=== PATIENT | male | born 2000 | race Caucasian/White ===

== ENCOUNTER 2021-11-14 22:39 | Emergency (ER) | payer OTHER, SELFPAY ==
--- NOTE | ~2021-11-14 | XR_ITS ---
EXAMINATION: XR CHEST CLINICAL INFORMATION: Covid positive. Cough. COMPARISON: 09/05/2018 TECHNIQUE: Frontal view of the chest was obtained. FINDINGS: The lungs are well expanded. There is no focal consolidation, edema, or effusion. No pneumothorax. The cardiomediastinal silhouette is within normal limits. No acute osseous abnormality. XR/XR chest 1V IMPRESSION: Clear lungs.
[2021-11-14 22:56] VITALS: BP 105/71; PULSE 118; RESP 16; TEMP 37.8; O2SAT 99; BMI 27.1
[2021-11-14] MEDS: Ibuprofen 600 MG TABLET PO (22:56)
[2021-11-14 23:14] LABS: COVID-19 Test Positive (Negative)
[2021-11-14 23:19] LABS: IDNOW Serial# 16C4AD1C; Influenza A Negative (Negative); Influenza B2 Negative (Negative)
--- NOTE | 2021-11-15 01:02 | ED.FEVER ---
HPI - Fever General Chief Complaint: Fever Stated Complaint: fever,sob,cough Time Seen by Provider: 11/15/21 01:01 Source: patient Mode of arrival: ambulatory Limitations: no limitations History of Present Illness HPI Narrative: 21-year-old male came in for evaluation of fever, body ache, coughing. Patient received COVID vaccination x2 (done remember what kind), there is exposure to a sick contact at home with similar symptoms. Patient had a nonproductive cough started 4 months ago. Related Data Allergies Allergy/AdvReac Type Severity Reaction Status Date / Time No Known Allergies Allergy Unverified 12/23/19 19:41 [No Known Allergies*] Review of Systems Review of Systems: All other systems are reviewed and are negative Constitutional: Reports as per HPI and Reports no additional constitutional complaints Eyes: Reports as per HPI and Reports no additional eye complaints Reports system reviewed and no additional complaints, except as documented Cardiovascular: Reports as per HPI and Reports no additional cardiovascular complaints Respiratory: Reports as per HPI and Reports no additional respiratory complaints Gastrointestinal: Reports as per HPI and Reports no additional gastrointestinal complaints Genitourinary: Reports no additional female genitourinary complaints Musculoskeletal: Reports no additional musculoskeletal complaints Skin/Breast: Reports system reviewed and no additional complaints, except as docu Psychiatric: Reports no additional psychiatric complaints Endocrine: Reports no additional endocrine complaints Hematologic/Lymphatic: Reports no additional hematologic/lymphatic complaints Allergic/Immunologic: Reports no additional allergic/immunologic complaints Reports system reviewed and no additional complaints, except as documented and Reports Abnormal speech present [facility] Social History Social History Advance Directives: No Advance Directives Information Provided: Yes Physical Exam Vital Signs: Vital Signs: Last Vital Signs Temp 100.1 F 11/14/21 22:56 Pulse 118 H 11/14/21 22:56 Resp 16 11/14/21 22:56 BP 105/71 11/14/21 22:56 Pulse Ox 99 11/14/21 22:56 O2 Del Method 11/14/21 22:56 BMI result Body Mass Index 27.1 Vital signs have been reviewed as appeared to be correct. Blood pressure normal. Heart rate elevated. Respiration rate normal. Temperature elevated. Oxygen saturation normal. Appearance: Alert. Oriented X3. No acute distress. Head: Normal external exam. Normocephalic. Atraumatic. No Garces signs noted. No raccoon eyes noted Eyes: PERRLA. EOMI. Conjunctiva and sclera normal. Eyelids normal. ENT: TM's Normal. Pharynx normal. Uvula midline. Moist mucous membranes. No trismus noted. No drooling noted. No muffled voice noted. Neck: Normal inspection. Neck supple. FROM. No adenopathy. Thyroid Normal. No meningeal signs. No neck mass noted. CVS: Normal heart rate and rhythm. Heart sound normal. No murmurs noted. Pulses normal throughout. Respiratory: No respiratory distress. Painless inspiration. Breath sounds normal. No wheezes/rales/rhonchi noted. Chest nontender. No accessory muscle usage noted or decreased air movement noted. Abdomen: Soft and nontender. Bowel sounds normal in all 4 quadrants. No distention noted. No organomegaly noted. No visible injury noted. Back: No CVA tenderness. Full range of motion noted. Skin: Skin warm and dry. Normal skin color. Normal skin turgor. No rashes/lesions/lacerations noted. Extremities: No lower extremity edema. Extremities exhibit normal range of motion. Extremities nontender. Neuro: Oriented X 3. Cranial nerve exam: II-XII are grossly intact No motor deficit. No sensory deficit. Reflexes normal. Course Course Course Narrative: 21-year-old male with COVID infection, no SOB, chest x-ray is unremarkable, O2 saturation is 99% on room air. Will discharge, self quarantine, frequent handwashing, use face mask at all times, keep social distancing. MDM - Fever Lab Data Attestation: I reviewed the patient's lab results. Labs: Lab Results 11/14/21 11/14/21 Range/Units 22:56 22:56 COVID-19 ([facility]) Positive A (Negative) COVID-19 Clin Com See Note Influenza Type A (CH[facility]INE) Negative (Negative) Influenza Type B (CHRISTINE) Negative (Negative) Influenza A & B Note See Note Imaging Data Chest x-ray: Attestation: I personally reviewed and interpreted this imaging study as follows: Radiologist's impression: No acute intrathoracic pathology. Discharge Plan Discharge Clinical Impression: COVID-19 virus infection Patient Disposition: Home, Self-Care Instructions: COVID-19 (Coronavirus Disease 2019) (ED) Additional Instructions: Frequent handwashing,, use face mask at all times, keep social distancing, self quarantine for the next 10 days. Return to the emergency department for shortness of breath. Stand Alone Forms: Work/School Release
[2021-11-15] MEDS: Acetaminophen 325 MG TABLET 650 MG PO (01:25)
== END 2021-11-15 01:32 | disposition home or self-care (01) ==
PROVIDERS: Emergency Provider Emergency Medicine
DX: U07.1 COVID-19 (principal); R50.9 Fever, unspecified
CPT/HCPCS: 71045; 87502; 87635; 99283

== ENCOUNTER 2022-04-03 12:21 | Emergency (ER) | payer OTHER, SELFPAY ==
[2022-04-03 12:35] VITALS: BP 127/71; PULSE 114; RESP 16; TEMP 37.7; O2SAT 97; BMI 28.3
--- NOTE | 2022-04-03 12:37 | ED.URI ---
HPI - URI/Sore Throat General Chief Complaint: Upper Respiratory Symptoms Stated Complaint: Cough Chest Discomfort Time Seen by Provider: 04/03/22 12:37 Source: patient Mode of arrival: ambulatory Limitations: no limitations History of Present Illness HPI Narrative: 22 yo male with no medical problems presents to the ER c/o flu like symptoms since 03/31 after known exposure to the Flu on 03/29. He has body aches, headaches, cough. No difficulty breathing or chest pain. He presents with his sister who has similar complaints. MD elicited complaint: fever, cough and nasal congestion Onset (ago): day(s) Consistency: progressively worsening Severity: moderate Description of mucous: clear and watery Able to tolerate fluids by mouth: Yes Exacerbating factors: nothing Relieving factors: nothing Context: sick contacts Associated symptoms: chills, headache, nasal congestion, sore throat and cough Treatments prior to arrival: none Related Data Allergies Allergy/AdvReac Type Severity Reaction Status Date / Time No Known Allergies Allergy Verified 04/03/22 12:38 [No Known Allergies*] Review of Systems Review of Systems: Constitutional: No Fever, + Chills ENT/Mouth: + sore throat, No Rhinorrhea Cardiovascular: No Chest Pain, No SOB Respiratory: + Cough, No Sputum, No Wheezing, No dyspnea Gastrointestinal: No Nausea, No Vomiting, No Diarrhea, No abdominal Pain Musculoskeletal: No joint pain, +Myalgias Skin: No Skin Lesions, No rash Neuro: No Weakness, No Dizziness, + Headache Heme/Lymph: No Lymphadenopathy PMFSH Social History Social History Advance Directives: No Advance Directives Information Provided: Yes Physical Exam Vital Signs: Vital Signs: Last Vital Signs Temp 99.9 F 04/03/22 12:35 Pulse 112 H 04/03/22 13:42 Resp 16 04/03/22 13:42 BP 138/80 04/03/22 13:42 Pulse Ox 98 04/03/22 13:42 O2 Del Method 04/03/22 13:42 BMI result Body Mass Index 28.3 Appearance: Alert. Oriented X3. No acute distress. Eyes: Pupils equal, round and reactive to light. ENT: Pharynx normal. Neck: Normal inspection. Neck supple. CVS: tachycardiac, 110, regular rhythm. Pulses normal. Respiratory: No respiratory distress. Breath sounds normal. Skin: Skin warm and dry. Normal skin color. Normal skin turgor. No rashes. Extremities: normal inspection x4, normal rom Neuro: Oriented X 3. grossly normal, nonfocal Course Course Course Narrative: 22 yo male presenting wtih flu like symptoms after known exposure to the flu. needs flu test for work. slightly tachycardic with low grade fever Reevaluation(s) Reevaluation #1: Patient tested negative for flu. He is here with his sister who tested positive for flu. He most likely has a false-negative which we discussed. He will be provided a work note. Symptomatic management reviewed. stable for d/c home. Medications Administered Discontinued Medications Generic Name Dose Route Start Last Admin Trade Name Freq PRN Reason Stop Dose Admin Acetaminophen 975 mg 04/03/22 12:42 04/03/22 13:06 Acetaminophen 325 Mg Tablet PO 04/03/22 12:43 975 mg ONCE ONE Administration Medical Decision Making Lab Data Labs: Lab Results 04/03/22 Range/Units 12:45 Influenza Type A (CHRISTINE) Negative (Negative) Influenza Type B (CHRISTINE) Negative (Negative) Influenza A & B Note See Note Discharge Plan Discharge Clinical Impression: Viral infection Patient Disposition: Home, Self-Care Instructions: Viral Syndrome (ED) Additional Instructions: You tested negative for Influenza, however since your family member tested positive this is most likely a FALSE NEGATIVE. Rest. Drink plenty of fluids. Do not go out in public while you are not feeling well. Take over the counter cold/flu medications as needed for your symptoms. Take Tylenol and/or Motrin as needed for fevers and body aches. Follow up with your doctor this week. If you shortness of breath worsens, if you develop difficulty breathing or any other concerning symptom come back to the ER for further evaluation. If you develop new or worsening symptoms call 911 or come back to the ER for further evaluation. Stand Alone Forms: Work/School Release Interventions: ED Discharge Assessment Last Done: 04/03/22 13:54 Discharge Date/Time: 04/03/22 13:58
[2022-04-03] MEDS: Acetaminophen 325 MG TABLET 975 MG PO (13:06)
[2022-04-03 13:36] LABS: Influenza A Negative (Negative); Influenza B2 Negative (Negative)
[2022-04-03 13:42] VITALS: BP 138/80; PULSE 112; RESP 16; O2SAT 98
== END 2022-04-03 13:58 | disposition home or self-care (01) ==
PROVIDERS: Physician Assistant; Emergency Provider Student in an Organized Health Care Education/Training Program
DX: B34.9 Viral infection, unspecified (principal); R05.9 Cough, unspecified; R51.9 Headache, unspecified; Z79.899 Other long term (current) drug therapy
CPT/HCPCS: 87502; 99283; 99284

== ENCOUNTER 2024-06-17 18:06 | Emergency (ER) | payer OTHER, SELFPAY ==
--- NOTE | ~2024-06-17 | US_ITS ---
CLINICAL HISTORY: RUQ pain US abdomen limited Comparison: None Findings: There is no intrahepatic bile duct dilatation. The common duct is 3 mm in diameter. The gallbladder is nondilated and no stones or sludge are visualized. No wall thickening or pericholecystic fluid. The interviewing clerk does report pain in the area of the gallbladder. The main portal vein is antegrade. IMPRESSION: Unremarkable sonographic appearance of the gallbladder. This document has been electronically signed by: Joi Welsh MD on 06/17/2024 20:01:17
[2024-06-17 19:02] VITALS: BP 126/70; PULSE 107; RESP 18; TEMP 37.2; O2SAT 100; BMI 25.1
--- NOTE | 2024-06-17 19:08 | ED.NAVMDI ---
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 He reports this morning he began with nausea, vomiting with multiple bouts of nonbloody emesis, having episodes of watery diarrhea without hematochezia or melena. Endorsing pain to the upper mid abdomen which he states occurred after he began vomiting. Endorses having subjective fever. 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 His brother has additionally been experiencing nausea vomiting and diarrhea today but his spouse has been more frequent. He also admits that family members in the household have tested positive for group a strep. He denies associated sore throat, cough, URI symptoms. No associated chest pain Related Data Previous Rx's ?Medication ?Instructions ?Recorded ondansetron 4 mg disintegrating 4 mg PO Q8H PRN nausea and 06/18/24 tablet vomiting #7 tabs Allergies Allergy/AdvReac Type Severity Reaction Status Date / Time No Known Allergies Allergy Verified 06/17/24 19:29 [No Known Allergies*] Review of Systems Review of Systems: Yes all other systems are reviewed and are negative PMFSH Past Medical History Attestation statement: The following information was validated with the patient. Source: old records reviewed Social History Social History Smoked in Last 30 Days: No Use of substances other than those prescribed or required for medical reasons: No Advance Directives: No Advance Directives Information Provided: Yes Do you have a plan to hurt others: No Plan Physical Exam Vital Signs: Vital Signs: Last Vital Signs Temp 99 F 06/18/24 01:56 Pulse 105 H 06/18/24 01:56 Resp 18 06/18/24 01:56 BP 119/69 06/18/24 01:56 Pulse Ox 99 06/18/24 01:56 O2 Del Method Room Air 06/18/24 01:56 BMI result Body Mass Index 25.1 Appearance: Alert.?Oriented to person, place and time. No acute distress.?Normal affect. Eyes: Pupils equal, round and reactive to light.? ENT: Pharynx normal.?? Neck: Normal inspection.? Neck supple.?? CVS: Heart sounds normal. tachycardia.? Pulses normal.?? Respiratory: No respiratory distress.? Lung sounds clear to auscultation bilaterally?? Abdomen: Soft with duffuse upper ABD tenderness upon palpation. Normoactive bowel sounds. No pulsatile mass.?? Skin: Skin warm and dry.? Normal skin color.? Extremities: No lower extremity edema.? Neuro: Moves all extremities spontaneously. Sensation intact bilaterally. Ambulates with normal steady gait. Course Course Course Narrative: This is an RME: Additional HPI, ROS, PE not included below will be deferred to primary provider. RME assessment and note performed by: Beth Josue PA-C This is a [id number], with no known medical hx, who presents to the ER with complaints of nausea, vomiting and abdominal pain since this morning. +subjective fevers. diarrhea. No cough, SOB. +sick contacts. Tenderness palpation along the epigastrium and right upper quadrant. Plan: Labs, UA, ultrasound, further ER eval needed. Reevaluation(s) Reevaluation #1: No lactic acidosis, low suspicion for acute intra-abdominal pathology/infarct. Symptomatic improvement after Zofran Toradol and IV fluids. Suspect a gastroenteritis, conservative treatment, stable for discharge home, outpatient follow-up with PCP in discussed strict return precautions. All questions answered. Medications Administered Discontinued Medications Generic Name Dose Route Start Last Admin Trade Name Freq PRN Reason Stop Dose Admin Acetaminophen 975 mg 06/17/24 23:19 06/17/24 23:23 Acetaminophen 325 Mg Tablet PO 06/17/24 23:20 975 mg ONCE ONE Administration Sodium Chloride 1,000 mls @ 999 mls/hr 06/17/24 23:45 06/18/24 00:37 Ns IV 06/18/24 00:45 999 mls/hr .Q1H1M IVELISSE Administration Ketorolac Tromethamine 15 mg 06/18/24 00:04 06/18/24 00:41 Ketorolac Tromethamine 15 Mg/Ml Vial IVPUSH 06/18/24 00:05 15 mg ONCE ONE Administration Ondansetron HCl 4 mg 06/17/24 23:57 06/18/24 00:41 Ondansetron Hcl 4 Mg/2 Ml Vial IVPUSH 06/17/24 23:58 4 mg ONCE ONE Administration Medical Decision Making Medical Decision Making [facility] Narrative: Patient is a 24-year-old male who presents emergency department for evaluation of N/V/D with associated abdominal pain as per HPI. On examination he does have diffuse tenderness throughout the upper abdomen to the touch, received acetaminophen. 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 Given associated ill contacts brother ill with similar gastrointestinal symptoms reviewed potential a viral gastroenteritis, he has been exposed to multiple members of family positive for group a strep his testing today however is negative, no evidence of acute pharyngitis on evaluation. CBC is without leukocytosis, anemia, or thrombocytopenia. No electrolyte derangement. No AME. LFTs overall unremarkable at that minimally elevated ALT at 94. Viral serologies are negative. Group a strep testing is negative. Admission/Observation Consideration of admission/observation: Escalation of care including admission/observation considered Lab Data [facility] Lab Attestation statement: I reviewed the patient's lab results. (See narrative above) 06/17/24 20:14 06/17/24 20:14 Labs: Lab Results 06/17/24 06/17/24 06/18/24 Range/Units 20:14 23:12 00:51 WBC 10.8 (4.8-10.8) X10*3/uL RBC 5.37 (4.60-5.80) X10*6/uL Hgb 15.7 (14.0-18.0) g/dl Hct 45.6 (42.0-52.0) % MCV 84.9 (80.0-98.0) fL MCH 29.2 (27.0-33.0) pg MCHC 34.4 (31.0-36.0) g/dl RDW 13.3 (11.0-16.0) % Plt Count 230 (160-400) X10*3/uL MPV 10.8 (9.4-12.4) fL Immature Gran % (Auto) 0.5 H (0.0-0.4) % Neut % (Auto) 86.9 H (45-73) % Lymph % (Auto) 6.3 L (20-40) % [place] % (Auto) 5.2 (2-11) % Eos % (Auto) 0.9 (0-4) % Baso % (Auto) 0.2 (0-2) % Lymph # (Auto) 0.7 L (1.2-4.9) X10*3/uL [place] # (Auto) 0.6 (0.1-1.2) X10*3/uL Eos # (Auto) 0.1 (0.0-0.4) X10*3/uL Baso # (Auto) 0.0 (0.0-0.2) X10*3/uL Abs Immat Gran (auto) 0.05 H (0.00-0.03) X10*3/uL Absolute Neuts (auto) 9.4 H (2.0-8.3) x10*3/uL Absolute Nucleated RBC 0.000 (0.0-0.012) X10*3/uL Nucleated RBC % (auto) 0.0 (0.0-0.2) /100WBC Sodium 138 (135-145) mmol/L Potassium 4.3 (3.3-5.1) mmol/L Chloride 106 (96-108) mmol/L Carbon Dioxide 22 (22-29) mmol/L Anion Gap 14 (12-20) BUN 10 (9-16) mg/dL Creatinine 0.81 (0.5-1.4) mg/dL Estim Creat Clear Calc 134.8 Estimated GFR > 60 Random Glucose 101 (60-115) mg/dL Lactic Acid 1.4 (0.5-2.0) mmol/L Calcium 9.7 (8.4-10.2) mg/dL Magnesium 1.8 (1.6-2.6) mg/dL Total Bilirubin 0.5 (0.0-1.0) mg/dL Direct Bilirubin 0.1 (0.0-0.5) mg/dL AST 36 (5-37) U/L ALT 94 H (0-40) U/L Alkaline Phosphatase 73 (39-117) U/L Total Protein 8.8 H (6.5-8.0) g/dL Albumin 4.6 (3.5-5.0) g/dL Lipase 6 L (8-78) U/L Influenza Type A (PCR) NEGATIVE (Negative) Influenza Type B (PCR) NEGATIVE (Negative) RSV RNA Qual (PCR) NEGATIVE (Negative) SARS-CoV-2 RNA (RT-PCR) NEGATIVE (Negative) S. pyogenes GrpA CHRISTINE Negative (Negative) Radiology Impression Discussion of test interpretation with radiology: I have reviewed the radiologist's reading. Radiologist Impression: US abdomen limited Comparison: None Findings: There is no intrahepatic bile duct dilatation. The common duct is 3 mm in diameter. The gallbladder is nondilated and no stones or sludge are visualized. No wall thickening or pericholecystic fluid. The advisor consultant does report pain in the area of the gallbladder. The main portal vein is antegrade. IMPRESSION: Unremarkable sonographic appearance of the gallbladder. Independent Historian Clinical information obtained from an independent historian. History obtained from or confirmed by: Parent External Record Review External record reviewed: Outpatient record Discharge Plan Discharge Clinical Impression: Gastroenteritis Patient Disposition: Home, Self-Care Instructions: Gastroenteritis (ED) Additional Instructions: As discussed, blood work today was very reassuring, ultrasound does not show abnormal finding. Presenting symptoms especially given ill contacts in the home with similar symptoms I suspect are due to a viral gastrointestinal illness. Clear liquids for the next 24 hours. Introduce a bland diet including crackers, bananas, rice, soup, toast, and boiled vegetables. This may progress to plain baked or boiled chicken or turkey. Avoid dairy products or foods high in fat or grease. A prescription for Zofran and nausea medication has been sent to your pharmacy, you may take this as needed as prescribed. Be sure that you are staying well hydrated. Follow-up with primary care doctor. Return with any new or worsening symptoms or concerns. Prescriptions: New ondansetron 4 mg tablet,disintegrating 4 mg PO Q8H PRN (Reason: nausea and vomiting) Qty: 7 0RF Referrals: Physician,Unknown J [Primary Care Provider] - Stand Alone Forms: Work/School Release Interventions: ED Discharge Assessment Last Done: 06/18/24 01:56 Print Language: Mexican
[2024-06-17 20:20] LABS: MANUAL DIFF FLAG NO
[2024-06-17 20:24] LABS: Basophils Percent Auto 0.2 % (0-2); Eosinophils Absolute Auto 0.1 X10*3/uL (0.0-0.4); Eosinophils Percent Auto 0.9 % (0-4); Hematocrit 45.6 % (42.0-52.0); Hemoglobin 15.7 g/dl (14.0-18.0); Imm Gran Abs Auto 0.05 X10*3/uL (0.00-0.03); Imm Gran Pct Auto 0.5 % (0.0-0.4); Lymphocytes Absolute Auto 0.7 X10*3/uL (1.2-4.9); Lymphocytes Percent Auto 6.3 % (20-40); Mean Corpuscular HGB Conc 34.4 g/dl (31.0-36.0); Mean Corpuscular Hemoglobin 29.2 pg (27.0-33.0); Mean Corpuscular Volume 84.9 fL (80.0-98.0); Mean Platelet Volume 10.8 fL (9.4-12.4); Monocytes Absolute Auto 0.6 X10*3/uL (0.1-1.2); Monocytes Percent Auto 5.2 % (2-11); Neutrophils Absolute Auto 9.4 x10*3/uL (2.0-8.3); Neutrophils Percent Auto 86.9 % (45-73); Platelet Count 230 X10*3/uL (160-400); Red Blood Count 5.37 X10*6/uL (4.60-5.80); Red Cell Distribution Width 13.3 % (11.0-16.0); White Blood Count 10.8 X10*3/uL (4.8-10.8)
[2024-06-17 20:50] LABS: Alanine Aminotransferase 94 U/L (0-40); Albumin Level 4.6 g/dL (3.5-5.0); Alkaline Phosphatase 73 U/L (39-117); Anion Gap 14 (12-20); Aspartate Amino Transferase 36 U/L (5-37); Bilirubin Direct 0.1 mg/dL (0.0-0.5); Bilirubin Total 0.5 mg/dL (0.0-1.0); Blood Urea Nitrogen 10 mg/dL (9-16); Calcium 9.7 mg/dL (8.4-10.2); Carbon Dioxide 22 mmol/L (22-29); Chloride 106 mmol/L (96-108); Creatinine Clr Calc Pharmacy 134.8; Estimated Glomerular Filt Rate > 60; Glucose Random 101 mg/dL (60-115); Lipase 6 U/L (8-78); Magnesium 1.8 mg/dL (1.6-2.6); Potassium 4.3 mmol/L (3.3-5.1); Sodium 138 mmol/L (135-145); Total Protein 8.8 g/dL (6.5-8.0)
[2024-06-17 21:00] LABS: Influenza A PCR NEGATIVE (Negative); Influenza B PCR NEGATIVE (Negative); Resp Syncy Virus RNA Qual PCR NEGATIVE (Negative); SARS COV2 PCR INHOUSE NEGATIVE (Negative)
[2024-06-17 22:08] VITALS: BP 108/65; PULSE 115; RESP 18; TEMP 36.9; O2SAT 99
[2024-06-17 22:17] VITALS: BP 125/75; PULSE 99; RESP 18; TEMP 37.3; O2SAT 100
[2024-06-17 23:12] VITALS: BP 113/61; PULSE 109; RESP 18; TEMP 37.9; O2SAT 99
[2024-06-17] MEDS: Acetaminophen 325 MG TABLET 975 MG PO (23:23)
[2024-06-17 23:25] LABS: IDNOW Serial# 6674DD1D; Strep A Nucleic Acid Negative (Negative)
[2024-06-18 00:32] VITALS: BP 109/64; PULSE 117; RESP 20; TEMP 38; O2SAT 98
[2024-06-18] MEDS: 0.9 % Sodium Chloride 1,000 ML 999 ML IV (00:37)
[2024-06-18] MEDS: ondansetron HCL 4 MG/2 ML VIAL IVPUSH (00:41)
[2024-06-18] MEDS: Ketorolac Tromethamine 15 MG/ML VIAL IVPUSH (00:41)
[2024-06-18 01:09] LABS: Lactic Acid 1.4 mmol/L (0.5-2.0)
[2024-06-18 01:30] VITALS: BP 119/69; PULSE 105; RESP 18; TEMP 37.2; O2SAT 99
[2024-06-18 01:56] VITALS: BP 119/69; PULSE 105; RESP 18; TEMP 37.2; O2SAT 99
== END 2024-06-18 02:04 | disposition home or self-care (01) ==
PROVIDERS: Nurse Practitioner Family; Physician Assistant Medical; Emergency Provider Emergency Medicine
DX: K52.9 Noninfective gastroenteritis and colitis, unspecified (principal); R11.2 Nausea with vomiting, unspecified; R10.11 Right upper quadrant pain; Z03.818 Encounter for observation for suspected exposure to other biological agents ruled out; Z79.899 Other long term (current) drug therapy
CPT/HCPCS: 0241U; 36415; 76705; 80048; 80076; 83605; 83690; 83735; 85025; 87651; 96361; 96374; 96375; 99284; J1885; J2405

== ENCOUNTER → 2024-06-17 19:10 | Outpatient (BNV) | payer OTHER, SELFPAY | PROVIDERS: Visit Provider Radiology Diagnostic Radiology | DX: R10.11 Right upper quadrant pain (principal) | CPT/HCPCS: 76705 ==